=== PATIENT | female | born 1960 | race Two or more races ===

== ENCOUNTER 2018-08-13 09:29 | Emergency (ER) | payer OTHER ==
[2018-08-13 10:47] LABS: Basophils # (auto) 0.1 uL; Basophils % (auto) 0.9 % (0.0-2.0); Eosinophils # (auto) 0.1 uL; Eosinophils % (auto) 0.8 % (0.0-7.0); Hematocrit 45.9 % (36.0-46.0); Hemoglobin 15.5 g/dL (12.2-16.2); Lymphocytes # (auto) 1.7 uL; Lymphocytes % (auto) 24.2 % (10.0-50.0); Mean Corpuscular Hemoglobin 32.1 pg (28.0-32.0); Mean Corpuscular Hgb Conc. 33.8 g/dL (32.0-36.0); Mean Corpuscular Volume 95.2 fL (80.0-100.0); Monocytes # (auto) 0.3 uL; Neutrophils # (auto) 4.8 uL; Neutrophils % (auto) 69.1 % (37.0-80.0); Nucleated Red Blood Cells % 0.1 %; Platelet Count (auto) 205 10^3/uL (140-450); Red Blood Cells 4.82 10^6/uL (4.0-5.20); Red Cell Distribution Width 13.6 % (11.8-14.3); White Blood Cell 6.9 10^3/uL (4.4-10.8)
[2018-08-13 11:00] LABS: Urine Bacteria NONE SEEN /hpf (None Seen); Urine Blood Negative /uL (Negative); Urine Specific Gravity 1.048 (1.001-1.035); Urine WBC 2 /hpf (0 - 5)
[2018-08-13 11:01] LABS: INR 0.95 (0.9-1.15); Partial Thromboplastin Time 26.9 sec (23.78-33.04); Prothrombin Time 10.2 sec (9.27-12.13)
[2018-08-13 11:14] LABS: Potassium 4.2 mmol/L (3.5-5.1)
[2018-08-13 11:21] LABS: BUN/Creatinine Ratio 31.7; Bilirubin, Total 0.6 mg/dL (0.2-1.0)
[2018-08-13 12:07] VITALS: BP 141/88
== END 2018-08-13 12:02 | disposition home or self-care (01) ==
LOC: ER 09:29
DX: K64.9 Unspecified hemorrhoids (principal); E11.9 Type 2 diabetes mellitus without complications; I10 Essential (primary) hypertension; R42 Dizziness and giddiness; R51 Headache
CPT/HCPCS: 36415; 71046; 74176; 80053; 81001; 82150; 83690; 85025; 85610; 85730; 93005; 94761

== ENCOUNTER 2023-07-28 16:28 | Inpatient (IN) | payer MEDICAID ==
[~2023-07-28] VITALS: Ht 149.9 cm; Wt 64.4 kg
[2023-07-28 19:50] LABS: Basophils # (auto) 0 10 ^3/uL (0-0.2); Basophils % (auto) 0.4 % (0.0-2.0); Eosinophils # (auto) 0 10 ^3/uL (0-0.8); Eosinophils % (auto) 0.4 % (0.0-7.0); Hematocrit 41.5 % (36.0-46.0); Hemoglobin 13.5 g/dL (12.2-16.2); Lymphocytes # (auto) 1.4 10 ^3/uL (0.4-5.4); Mean Corpuscular Hemoglobin 30.6 pg (28.0-32.0); Mean Corpuscular Hgb Conc. 32.6 g/dL (32.0-36.0); Mean Corpuscular Volume 93.9 fL (80.0-100.0); Monocytes # (auto) 0.3 10 ^3/uL (0-1.3); Monocytes % (auto) 5.1 % (0.0-12.0); Neutrophils # (auto) 4.6 10 ^3/uL (1.6-8.6); Neutrophils % (auto) 72.1 % (37.0-80.0); Nucleated Red Blood Cells % 0.1 %; Red Blood Cells 4.42 10^6/uL (4.0-5.20); White Blood Cell 6.4 10^3/uL (4.4-10.8)
[2023-07-28 19:58] LABS: Alanine Aminotransferase 16 U/L (7-40); Albumin 4.2 g/dL (3.2-4.8); Alkaline Phosphatase 68 U/L (46-116); Anion Gap 5 (5-15); Aspartate Aminotransferase 14 U/L (13-40); BUN/Creatinine Ratio 29.5 (10.0-20.0); Blood Urea Nitrogen 18 mg/dL (9-23); Calcium 9.9 mg/dL (8.7-10.4); Carbon Dioxide 29 mmol/L (20-30); Chloride 110 mmol/L (98-107); Glucose 288 mg/dL (74-106); Magnesium 1.9 mg/dL (1.6-2.6); Potassium 4.2 mmol/L (3.5-5.1); Sodium 144 mmol/L (136-145)
[2023-07-28 19:59] LABS: Bilirubin, Total 0.5 mg/dL (0.2-1.0); Total Protein 6.7 g/dL (5.7-8.2)
[2023-07-28 20:09] LABS: INR 1.11 (0.9-1.15); Partial Thromboplastin Time 27.2 SEC (24.5-34.5); Prothrombin Time 11.6 sec (9.3-11.8)
[2023-07-28] MEDS: GABAPENTIN 100 MG CAP PO ONE (23:45)
[2023-07-28] MEDS: HYDROcodone-ACET 5/325MG TAB PO ONE (23:45)
[2023-07-29 08:32] LABS: Urine Bacteria NONE SEEN /hpf (None Seen); Urine Blood Negative /uL (Negative); Urine Clarity HAZY (Clear); Urine Color Yellow (Yellow); Urine Hyaline Cast FEW /lpf (0 - 2); Urine Mucus FEW (None Seen); Urine Protein, UAD 1+ (Negative); Urine Specific Gravity 1.033 (1.001-1.035); Urine WBC 97 /hpf (0 - 5); Urine pH 5.5 (5.0-8.0)
[2023-07-29] MEDS: SODIUM CHLORIDE 0.9% 1,000 ML IV SCH (13:00)
[2023-07-29] MEDS ORDERED: ONDANSETRON HCL 4 MG/2 ML VIAL IV PRN (13:00)
[2023-07-29] MEDS ORDERED: ACETAMINOPHEN 325 MG TAB PO PRN (13:00)
[2023-07-29] MEDS ORDERED: DEXTROSE (50%) 50ML SYRG IV PRN (13:00)
[2023-07-29] MEDS ORDERED: DOCUSATE SOD 100 MG CAP PO PRN (13:00)
[2023-07-29] MEDS ORDERED: NITROGLYCERIN 0.4 MG SL TAB SL PRN (13:00)
[2023-07-29] MEDS ORDERED: MORPHINE SULFATE INJ 2 MG/ml SYRG IV PRN (13:00)
[2023-07-29 14:30] LABS: Erythrocyte Sedimentation Rate 15 mm/hr (0-20)
[2023-07-29] MEDS: cefTRIAXone 1GM/50ML D5W 50 ML IV ONE (15:52)
[2023-07-29] MEDS: ACCU-CHEK COMFORT CURVE STRIP VI SCH (17:10)
[2023-07-29] MEDS: InsuLIN REG 1unit/0.01ml Soln (100units/ml) SC SCH (17:26)
[2023-07-29] MEDS: HYDROcodone-ACET 5/325MG TAB PO PRN (21:34)
[2023-07-29 21:35] VITALS: BP 155/75; PULSE 84; RESP 16; RESP 18; TEMP 97.9; O2SAT 99
[2023-07-29 22:00] VITALS: BP 158/86; PULSE 80; RESP 16; TEMP 97.9; O2SAT 99
[2023-07-29 22:30] VITALS: BP 145/81
[2023-07-29] MEDS: GABAPENTIN 300 MG CAP PO ONE (22:44)
[2023-07-30] VITALS (7 sets, daily range): BP systolic 122–159; BP diastolic 59–90; PULSE 63–90; RESP 16–19; TEMP 97.1–98.1; O2SAT 96–99
[2023-07-30] MEDS ORDERED: GABA-339 PO (01:15)
[2023-07-30] MEDS ORDERED: LISI-275 PO (01:15)
[2023-07-30 05:25] LABS: Basophils # (auto) 0 10 ^3/uL (0-0.2); Basophils % (auto) 0.5 % (0.0-2.0); Eosinophils # (auto) 0.1 10 ^3/uL (0-0.8); Eosinophils % (auto) 2.1 % (0.0-7.0); Hematocrit 36.3 % (36.0-46.0); Lymphocytes # (auto) 2.4 10 ^3/uL (0.4-5.4); Lymphocytes % (auto) 41.3 % (10.0-50.0); Mean Corpuscular Hemoglobin 30.8 pg (28.0-32.0); Mean Corpuscular Hgb Conc. 32.9 g/dL (32.0-36.0); Mean Corpuscular Volume 93.7 fL (80.0-100.0); Monocytes # (auto) 0.4 10 ^3/uL (0-1.3); Monocytes % (auto) 6.3 % (0.0-12.0); Neutrophils # (auto) 2.8 10 ^3/uL (1.6-8.6); Neutrophils % (auto) 49.8 % (37.0-80.0); Nucleated Red Blood Cells % 0.1 %; Red Blood Cells 3.88 10^6/uL (4.0-5.20); Red Cell Distribution Width 15.1 % (11.8-14.3); White Blood Cell 5.7 10^3/uL (4.4-10.8)
[2023-07-30 05:47] LABS: Alanine Aminotransferase 11 U/L (7-40); Albumin 3.3 g/dL (3.2-4.8); Alkaline Phosphatase 54 U/L (46-116); Anion Gap 6 (5-15); Aspartate Aminotransferase 15 U/L (13-40); BUN/Creatinine Ratio 28.6 (10.0-20.0); Blood Urea Nitrogen 14 mg/dL (9-23); Calcium 9.1 mg/dL (8.7-10.4); Carbon Dioxide 27 mmol/L (20-30); Chloride 111 mmol/L (98-107); Glucose 127 mg/dL (74-106); Potassium 3.7 mmol/L (3.5-5.1); Sodium 144 mmol/L (136-145)
[2023-07-30 05:48] LABS: Bilirubin, Total 0.7 mg/dL (0.2-1.0); Total Protein 5.5 g/dL (5.7-8.2)
[2023-07-30] MEDS: cefTRIAXone 1GM/50ML D5W 50 ML IV SCH (08:31)
[2023-07-30] MEDS: LISINOPRIL 5 MG TAB PO ONE (14:09)
[2023-07-30] MEDS: GABAPENTIN 300 MG CAP PO SCH (17:22)
[2023-07-31] VITALS (8 sets, daily range): BP systolic 103–142; BP diastolic 47–74; PULSE 76–97; RESP 16–20; TEMP 97.6–98.3; O2SAT 90–100
[2023-07-31] MEDS: TEMAZEPAM 15 MG CAP PO ONE (00:29)
[2023-07-31] MEDS: LISINOPRIL 5 MG TAB PO SCH (09:26)
[2023-07-31] MEDS ORDERED: GABAPENTIN 300 MG CAP PO SCH (10:00)
[2023-07-31] MEDS ORDERED: fentaNYL CITRATE 5 ML ONE (12:09)
[2023-07-31] MEDS ORDERED: fentaNYL CITRATE 100 MCG/2 ML VL ONE ×2 (12:10→14:47)
[2023-07-31] MEDS ORDERED: PROPOFOL 10 MG/ML 20 ML IV ONE (12:12)
[2023-07-31] MEDS ORDERED: MIDAZOLAM HCL 2MG/2ML 2ml VIAL (1mg/ml) ONE (12:34)
[2023-07-31] MEDS ORDERED: ROCURONIUM 10MG/ML 10ML VIAL IV ONE (13:00)
[2023-07-31] MEDS: LIDOCAINE W/ EPINEPHRINE 1% 20ML VIAL ONE (13:46)
[2023-07-31] MEDS ORDERED: MEPERIDINE HCL (25 MG/ML) 1ML VIAL ONE ×2 (13:54→14:59)
[2023-07-31] MEDS ORDERED: ONDANSETRON HCL 4 MG/2 ML VIAL IV PRN ×2 (15:45→16:15)
[2023-07-31] MEDS ORDERED: MEPERIDINE HCL (25 MG/ML) 1ML VIAL IV PRN (16:15)
[2023-07-31] MEDS: HYDROmorphone HCL 2 MG/ML VL/or syr IV PRN (16:30)
[2023-07-31] MEDS: MORPHINE SULFATE INJ 2 MG/ml SYRG IV PRN (18:00)
[2023-07-31] MEDS: HYDROcodone-ACET 10/325MG TAB PO PRN (20:37)
[2023-07-31] MEDS: CYCLOBENZAPRINE HCL 10 MG TAB PO SCH (22:00)
[2023-07-31] MEDS: DOCUSATE SOD 100 MG CAP PO SCH (22:00)
[2023-07-31] MEDS ORDERED: ceFAZolin 1GM/50ML 50 ML IV SCH (22:00)
[2023-07-31] MEDS: ceFAZolin 1GM/50ML 50 ML IV SCH (23:47)
[2023-08-01] VITALS (8 sets, daily range): BP systolic 90–167; BP diastolic 50–81; PULSE 90–131; RESP 16–22; TEMP 97.9–99.4; O2SAT 93–100
[2023-08-01] MEDS: D5W/SOD CHLO 0.9% 1,000 ML IV SCH (01:51)
[2023-08-01] MEDS: SUCCINYLCHOLINE CHLORIDE 20 MG/ML 10ML VIAL IV ONE (12:25)
[2023-08-01] MEDS: TRANEXAMIC ACID 20 ML ONE (12:25)
[2023-08-01] MEDS: ceFAZolin 2 GM/D5W50ml 50 ML IV ONE (12:26)
[2023-08-02] VITALS (8 sets, daily range): BP systolic 125–165; BP diastolic 64–80; PULSE 82–132; RESP 12–19; TEMP 37; O2SAT 90–99
[2023-08-03] VITALS (8 sets, daily range): BP systolic 114–164; BP diastolic 62–80; PULSE 93–122; RESP 15–19; TEMP 97.8–98.4; O2SAT 94–98
[2023-08-03 18:02] LABS: COVID19 ANTIGEN SOFIA FIA NEGATIVE (NEGATIVE)
[2023-08-03] MEDS: hydrALAZINE HCL 20 MG/ML VL IV PRN (23:15)
[2023-08-04] VITALS (10 sets, daily range): BP systolic 95–138; BP diastolic 45–74; PULSE 102–125; RESP 16–20; TEMP 97.7–98.3; O2SAT 95–98
[2023-08-04 11:47] LABS: Basophils # (auto) 0 10 ^3/uL (0-0.2); Basophils % (auto) 0.4 % (0.0-2.0); Eosinophils # (auto) 0.1 10 ^3/uL (0-0.8); Eosinophils % (auto) 1.2 % (0.0-7.0); Hematocrit 32.5 % (36.0-46.0); Hemoglobin 10.7 g/dL (12.2-16.2); Lymphocytes # (auto) 0.9 10 ^3/uL (0.4-5.4); Lymphocytes % (auto) 14.3 % (10.0-50.0); Mean Corpuscular Hemoglobin 31.1 pg (28.0-32.0); Mean Corpuscular Hgb Conc. 32.8 g/dL (32.0-36.0); Mean Corpuscular Volume 94.7 fL (80.0-100.0); Monocytes # (auto) 0.4 10 ^3/uL (0-1.3); Monocytes % (auto) 6.6 % (0.0-12.0); Neutrophils # (auto) 4.7 10 ^3/uL (1.6-8.6); Neutrophils % (auto) 77.5 % (37.0-80.0); Red Blood Cells 3.43 10^6/uL (4.0-5.20); Red Cell Distribution Width 15.1 % (11.8-14.3); White Blood Cell 6.1 10^3/uL (4.4-10.8)
[2023-08-04] MEDS: cefTRIAXone 1GM/50ML D5W 50 ML IV ONE (11:56)
[2023-08-04 12:09] LABS: Chloride 103 mmol/L (98-107); Potassium 4.1 mmol/L (3.5-5.1); Sodium 139 mmol/L (136-145)
[2023-08-04 12:10] LABS: Anion Gap 6 (5-15); Calcium 8.9 mg/dL (8.5-10.1); Carbon Dioxide 30 mmol/L (20-30)
[2023-08-04 12:15] LABS: BUN/Creatinine Ratio 14.6 (10.0-20.0); Blood Urea Nitrogen 7 mg/dL (9-23); Glucose 265 mg/dL (74-106)
[2023-08-05 00:45] VITALS: BP 126/63; PULSE 108; RESP 19; TEMP 98.7; O2SAT 97
[2023-08-05 08:00] VITALS: BP 105/53; PULSE 106; PULSE 111; RESP 14; RESP 20; TEMP 98; O2SAT 96
[2023-08-05] MEDS: cefTRIAXone 1GM/50ML D5W 50 ML IV SCH (08:59)
[2023-08-05 09:00] VITALS: BP 105/53; PULSE 106; RESP 14; TEMP 98; O2SAT 96
[2023-08-05] MEDS: ACETAMINOPHEN 325 MG TAB PO PRN (09:14)
[2023-08-05 12:18] LABS: COVID19 ANTIGEN SOFIA FIA NEGATIVE (NEGATIVE)
[2023-08-05 13:00] VITALS: BP 142/72; PULSE 103; RESP 14; TEMP 97.6; O2SAT 98
[2023-08-05 15:39] VITALS: BP 105/53; PULSE 103; RESP 14; TEMP 97.6; O2SAT 98
== END 2023-08-05 16:30 | DRG 304 ==
LOC: ER 16:28 → OVERFLOW 07-29 12:57 → EAST 07-29 12:57 → TELE-EAST 07-31 19:18
PROVIDERS: ADMIT Nurse Practitioner Family; ATTEND Family Medicine
PROC: 0SG3071 Fusion of Lumbosacral Joint with Autologous Tissue Substitute, Posterior Approach, Posterior Column, Open Approach (ICD-10-PCS; 2023-07-31)
PROC: 01NB0ZZ Release Lumbar Nerve, Open Approach (ICD-10-PCS; 2023-07-31)
PROC: 01NR0ZZ Release Sacral Nerve, Open Approach (ICD-10-PCS; 2023-07-31)
PROC: 00NY0ZZ Release Lumbar Spinal Cord, Open Approach (ICD-10-PCS; 2023-07-31)
PROC: 4A11X4G Monitoring of Peripheral Nervous Electrical Activity, Intraoperative, External Approach (ICD-10-PCS; 2023-07-31)
PROC: 0SG0071 Fusion of Lumbar Vertebral Joint with Autologous Tissue Substitute, Posterior Approach, Posterior Column, Open Approach (ICD-10-PCS; principal; 2023-07-31 12:43)
PROC: 05HA33Z Insertion of Infusion Device into Left Brachial Vein, Percutaneous Approach (ICD-10-PCS; 2023-08-05)
PROC: B54NZZA Ultrasonography of Left Upper Extremity Veins, Guidance (ICD-10-PCS; 2023-08-05)
DX: M48.062 Spinal stenosis, lumbar region with neurogenic claudication (principal); A41.9 Sepsis, unspecified organism; E11.21 Type 2 diabetes mellitus with diabetic nephropathy; E11.42 Type 2 diabetes mellitus with diabetic polyneuropathy; N30.00 Acute cystitis without hematuria; M48.07 Spinal stenosis, lumbosacral region; M47.26 Other spondylosis with radiculopathy, lumbar region; M51.16 Intervertebral disc disorders with radiculopathy, lumbar region; G89.29 Other chronic pain; M43.16 Spondylolisthesis, lumbar region; K59.00 Constipation, unspecified; I10 Essential (primary) hypertension; E11.65 Type 2 diabetes mellitus with hyperglycemia; K57.30 Diverticulosis of large intestine without perforation or abscess without bleeding; I45.10 Unspecified right bundle-branch block; Z83.3 Family history of diabetes mellitus
CPT/HCPCS: 36415; 71045; 72100; 72131; 72148; 72170; 74176; 76000; 80048; 80053; 81001; 82962; 83036; 83735; 83880; 84443; 84484; 85025; 85610; 85652; 85730; 86850; 86900; 86901; 87040; 87086; 87426; 93005; 93306; 97110; 97116; 97163; 97164; 97530; G0378; J0330; J1815; J2250; J2704; J7042

== ENCOUNTER 2024-01-07 13:37 | Inpatient (IN) | payer MEDICAID ==
[~2024-01-07] VITALS: Ht 149.9 cm; Wt 72.1 kg
[~2024-01-07 13:37] MED LIST: GABA-339 PO; LISI-275 PO
[2024-01-07 15:03] LABS: Basophils # (auto) 0 10 ^3/uL (0-0.2); Basophils % (auto) 0.4 % (0.0-2.0); Eosinophils # (auto) 0 10 ^3/uL (0-0.8); Eosinophils % (auto) 0.7 % (0.0-7.0); Hematocrit 38.8 % (36.0-46.0); Hemoglobin 12.9 g/dL (12.2-16.2); Lymphocytes # (auto) 0.8 10 ^3/uL (0.4-5.4); Mean Corpuscular Hemoglobin 31.3 pg (28.0-32.0); Mean Corpuscular Hgb Conc. 33.2 g/dL (32.0-36.0); Mean Corpuscular Volume 94.4 fL (80.0-100.0); Monocytes # (auto) 0.2 10 ^3/uL (0-1.3); Monocytes % (auto) 3.5 % (0.0-12.0); Neutrophils # (auto) 4.3 10 ^3/uL (1.6-8.6); Neutrophils % (auto) 80.4 % (37.0-80.0); Platelet Count (auto) 229 10^3/uL (140-450); Red Blood Cells 4.11 10^6/uL (4.0-5.20); Red Cell Distribution Width 15.5 % (11.8-14.3); White Blood Cell 5.3 10^3/uL (4.4-10.8)
[2024-01-07 15:12] LABS: Chloride 107 mmol/L (98-107); Sodium 141 mmol/L (136-145)
[2024-01-07 15:13] LABS: Anion Gap 7 (5-15); Calcium 9.2 mg/dL (8.7-10.4); Carbon Dioxide 27 mmol/L (20-30)
[2024-01-07 15:18] LABS: BUN/Creatinine Ratio 12.5 (10.0-20.0); Blood Urea Nitrogen 7 mg/dL (9-23); Glucose 258 mg/dL (74-106)
[2024-01-07] MEDS: SODIUM CHLORIDE 0.9% 1,000 ML IV ONE (15:21)
[2024-01-07] MEDS: MORPHINE SULFATE 4 MG/ML SYR/VIAL IV ONE (15:21)
[2024-01-07] MEDS: ONDANSETRON HCL 4 MG/2 ML VIAL IV ONE (15:21)
[2024-01-07] MEDS: ASPirin 81 mg TAB PO ONE (15:22)
[2024-01-07 20:45] VITALS: PULSE 78; RESP 18; O2SAT 98
[2024-01-07] MEDS ORDERED: MORPHINE SULFATE INJ 2 MG/ml SYRG IV PRN (20:45)
[2024-01-07] MEDS ORDERED: ACETAMINOPHEN 325 MG TAB PO PRN (21:00)
[2024-01-07] MEDS ORDERED: DOCUSATE SOD 100 MG CAP PO PRN (21:00)
[2024-01-07] MEDS ORDERED: NITROGLYCERIN 0.4 MG SL TAB SL PRN (21:00)
[2024-01-07] MEDS ORDERED: LABETALOL HCL 20 MG/4 ML VL IV PRN (21:00)
[2024-01-07] MEDS: ONDANSETRON HCL 4 MG/2 ML VIAL IV PRN (21:01)
[2024-01-07] MEDS: MORPHINE SULFATE INJ 2 MG/ml SYRG IV PRN (21:02)
[2024-01-07] MEDS ORDERED: DEXTROSE (50%) 50ML SYRG IV PRN (21:15)
[2024-01-07] MEDS: SODIUM CHLOR 0.9% PF (SALINE LOCK) 10ML VIAL/SYR IV SCH (22:25)
[2024-01-07] MEDS: ACCU-CHEK COMFORT CURVE STRIP VI SCH (22:51)
[2024-01-07] MEDS: InsuLIN REG 1unit/0.01ml Soln (100units/ml) SC SCH (22:56)
[2024-01-07] MEDS: hydrALAZINE HCL 20 MG/ML VL IV PRN (23:24)
[2024-01-08] VITALS (10 sets, daily range): BP systolic 131–159; BP diastolic 70–94; PULSE 101–114; RESP 15–20; TEMP 97.7–98.5; O2SAT 0–97
[2024-01-08] MEDS: HYDROmorphone HCL 2 MG/ML VL/or syr IV PRN (00:42)
[2024-01-08] MEDS ORDERED: INSLANTI SC (02:13)
[2024-01-08] MEDS ORDERED: GLIP10TA9 PO (02:13)
[2024-01-08] MEDS ORDERED: METF-372 PO (02:13)
[2024-01-08] MEDS: HYDROcodone-ACET 5/325MG TAB PO PRN (02:52)
[2024-01-08 07:00] LABS: Basophils # (auto) 0 10 ^3/uL (0-0.2); Basophils % (auto) 0.6 % (0.0-2.0); Eosinophils # (auto) 0.1 10 ^3/uL (0-0.8); Eosinophils % (auto) 1.5 % (0.0-7.0); Hematocrit 35.6 % (36.0-46.0); Hemoglobin 11.7 g/dL (12.2-16.2); Lymphocytes # (auto) 1.4 10 ^3/uL (0.4-5.4); Lymphocytes % (auto) 22.2 % (10.0-50.0); Mean Corpuscular Hemoglobin 30.9 pg (28.0-32.0); Mean Corpuscular Hgb Conc. 32.9 g/dL (32.0-36.0); Mean Corpuscular Volume 93.9 fL (80.0-100.0); Monocytes # (auto) 0.5 10 ^3/uL (0-1.3); Monocytes % (auto) 7.9 % (0.0-12.0); Neutrophils # (auto) 4.3 10 ^3/uL (1.6-8.6); Neutrophils % (auto) 67.8 % (37.0-80.0); Platelet Count (auto) 207 10^3/uL (140-450); Red Blood Cells 3.79 10^6/uL (4.0-5.20); Red Cell Distribution Width 15.4 % (11.8-14.3); White Blood Cell 6.4 10^3/uL (4.4-10.8)
[2024-01-08 07:19] LABS: Alanine Aminotransferase 14 U/L (7-40); Albumin 3.6 g/dL (3.2-4.8); Alkaline Phosphatase 109 U/L (46-116); Anion Gap 6 (5-15); Aspartate Aminotransferase 16 U/L (13-40); BUN/Creatinine Ratio 20.8 (10.0-20.0); Bilirubin, Total 0.5 mg/dL (0.2-1.0); Blood Urea Nitrogen 11 mg/dL (9-23); Calcium 9.1 mg/dL (8.7-10.4); Carbon Dioxide 26 mmol/L (20-30); Chloride 109 mmol/L (98-107); Glucose 185 mg/dL (74-106); Potassium 3.8 mmol/L (3.5-5.1); Sodium 141 mmol/L (136-145); Total Protein 6.3 g/dL (5.7-8.2)
[2024-01-08] MEDS: LISINOPRIL 5 MG TAB PO SCH (08:16)
[2024-01-08] MEDS: ASPirin-EC 81 mg tab PO SCH (08:16)
[2024-01-08] MEDS ORDERED: ASPirin 81 mg TAB PO ONE (12:00)
[2024-01-08] MEDS: KETOROLAC TROMETH 30 MG/ML 1ML VIAL IV ONE (12:18)
[2024-01-08] MEDS: DOCUSATE SOD 100 MG CAP PO ONE (12:18)
[2024-01-08] MEDS: NIFEdipine ER 30 MG TAB PO ONE (12:18)
[2024-01-08] MEDS ORDERED: ADENOSINE 53 MG in GIVE UN-DILUTED 0 ML IV ONE (14:30)
[2024-01-08 14:43] LABS: Triglycerides 67 mg/dL (< 150)
[2024-01-08 14:44] LABS: LDL Cholesterol 82 mg/dL (< 100)
[2024-01-08 14:45] LABS: Cholesterol 148 mg/dL (< 200); HDL Cholesterol 60 mg/dL (40-59)
[2024-01-08] MEDS: ADENOSINE 53 MG in GIVE UN-DILUTED 0 ML IV ONE (15:10)
[2024-01-08] MEDS: DOCUSATE SOD 100 MG CAP PO SCH (22:26)
[2024-01-08] MEDS: INSULIN LANTUS (GLARGINE) 1 /0.01ml (100units/ml) SC SCH (22:27)
[2024-01-08] MEDS: metFORMIN HYDROCHLORIDE 500 MG TAB PO ONE (23:20)
[2024-01-08] MEDS: metFORMIN HYDROCHLORIDE 500 MG TAB PO SCH (23:20)
[2024-01-09] VITALS (8 sets, daily range): BP systolic 106–134; BP diastolic 63–73; PULSE 99–114; RESP 18–22; TEMP 36.7; O2SAT 95–100
[2024-01-09 06:01] LABS: Basophils # (auto) 0 10 ^3/uL (0-0.2); Basophils % (auto) 0.5 % (0.0-2.0); Eosinophils # (auto) 0.1 10 ^3/uL (0-0.8); Eosinophils % (auto) 1.1 % (0.0-7.0); Hematocrit 36.1 % (36.0-46.0); Hemoglobin 12.2 g/dL (12.2-16.2); Lymphocytes # (auto) 0.9 10 ^3/uL (0.4-5.4); Lymphocytes % (auto) 18.2 % (10.0-50.0); Mean Corpuscular Hemoglobin 31.8 pg (28.0-32.0); Mean Corpuscular Hgb Conc. 33.9 g/dL (32.0-36.0); Mean Corpuscular Volume 93.9 fL (80.0-100.0); Monocytes # (auto) 0.4 10 ^3/uL (0-1.3); Monocytes % (auto) 8.3 % (0.0-12.0); Neutrophils # (auto) 3.6 10 ^3/uL (1.6-8.6); Neutrophils % (auto) 71.9 % (37.0-80.0); Nucleated Red Blood Cells % 0.1 %; Platelet Count (auto) 198 10^3/uL (140-450); Red Blood Cells 3.84 10^6/uL (4.0-5.20)
[2024-01-09 06:23] LABS: Alanine Aminotransferase 12 U/L (7-40); Albumin 3.6 g/dL (3.2-4.8); Alkaline Phosphatase 110 U/L (46-116); Anion Gap 8 (5-15); Aspartate Aminotransferase 16 U/L (13-40); BUN/Creatinine Ratio 23.3 (10.0-20.0); Blood Urea Nitrogen 10 mg/dL (9-23); Calcium 8.9 mg/dL (8.7-10.4); Carbon Dioxide 25 mmol/L (20-30); Chloride 109 mmol/L (98-107); Glucose 157 mg/dL (74-106); Potassium 3.5 mmol/L (3.5-5.1); Sodium 142 mmol/L (136-145)
[2024-01-09 06:24] LABS: Bilirubin, Total 0.7 mg/dL (0.2-1.0); Total Protein 6.4 g/dL (5.7-8.2)
[2024-01-09] MEDS: NIFEdipine ER 30 MG TAB PO SCH (08:29)
[2024-01-09] MEDS: ASPirin 81 mg TAB PO SCH (08:31)
[2024-01-09] MEDS ORDERED: ASPI1TAB20 PO (18:38)
== END 2024-01-09 18:54 | disposition home or self-care (01) | DRG 203 ==
LOC: ER 13:45 → TELE 20:54 → TELE-WESTW 20:54
PROVIDERS: ADMIT Internal Medicine Geriatric Medicine; ATTEND Internal Medicine Geriatric Medicine
DX: M94.0 Chondrocostal junction syndrome [Tietze] (principal); E11.9 Type 2 diabetes mellitus without complications; M62.838 Other muscle spasm; I16.0 Hypertensive urgency; I45.10 Unspecified right bundle-branch block; Z79.899 Other long term (current) drug therapy; Z79.4 Long term (current) use of insulin
CPT/HCPCS: 36415; 70450; 71045; 72125; 78452; 80048; 80053; 80061; 82306; 82607; 82962; 83036; 83880; 84443; 84484; 85025; 93005; 93017; 93306; 93970; 96374; 96375; G0378; J0153; J1815; J1885; J2405

== ENCOUNTER 2024-01-12 13:51 | Emergency (ER) | payer MEDICAID ==
[~2024-01-12] VITALS: Ht 149.9 cm; Wt 63.2 kg
[~2024-01-12 13:51] MED LIST changes: +ASPI1TAB20 PO; +GLIP10TA9 PO; +INSLANTI SC; +METF-372 PO
[2024-01-12 15:48] VITALS: BP 146/76; PULSE 110; RESP 16; TEMP 98; O2SAT 95
[2024-01-12] MEDS ORDERED: IBUP-1455 PO (15:57)
[2024-01-12] MEDS ORDERED: METH4PAK PO (15:57)
[2024-01-12] MEDS ORDERED: VALA1TAB PO (15:57)
== END 2024-01-12 15:57 | disposition home or self-care (01) ==
LOC: ER 13:51
DX: B02.9 Zoster without complications (principal); I10 Essential (primary) hypertension; E11.9 Type 2 diabetes mellitus without complications; Z98.890 Other specified postprocedural states; Z79.899 Other long term (current) drug therapy